=== PATIENT | female | born 1970 | race Caucasian/White ===

== ENCOUNTER 2021-02-05 07:24 | Day surgery (SDC) | payer OTHER ==
[2021-02-03 14:24] LABS: Absolute Lymphocytes (CBC) 2.1 K/uL (0.7-4.9); Basophils % 0.7 % (0-1.3); Hematocrit 37.1 % (36.0-45.0); Lymphocytes % 27.5 % (15.3-44.8); MPV 7.6 fL (7.6-11.3); RBC Red Blood Cell Count 4.77 M/uL (3.86-4.86)
--- NOTE | 2021-02-03 14:26 | RAD REPORT ---
EXAM DESCRIPTION: RAD - Chest Pa And Lat (2 Views) - 02/03/2021 2:11 pm CLINICAL HISTORY: PRE-OP, pending carpal tunnel surgery, hypertension COMPARISON: None TECHNIQUE: Frontal and lateral views of the chest were obtained. FINDINGS: The lungs are clear. Heart size is normal and central vasculature is within normal limit s. No pleural effusion or pneumothorax seen. No acute bony finding noted. No aortic abnormality. IMPRESSION: No acute cardiopulmonary process.
[2021-02-03 14:29] LABS: Protime INR 0.97
[2021-02-03 14:37] LABS: Potassium 4.1 mmol/L (3.5-5.1)
[2021-02-05 08:04] LABS: Specific Gravity 1.015 (1.005-1.030)
[2021-02-05] MEDS ORDERED: ACETAMINOPHEN 500 MG TAB ONE (08:26)
[2021-02-05] MEDS ORDERED: CELECOXIB 100 MG CAPSULE ONE (08:26)
[2021-02-05] MEDS ORDERED: Ringers Lactate 1,000 ML IV ONE (08:26)
[2021-02-05] MEDS ORDERED: CEFAZOLIN/SWI 2gm 2 GM/20 ML SYR ONE (08:26)
[2021-02-05] MEDS ORDERED: FENTANYL CITR 100 MCG/2 ML ONE (08:29)
[2021-02-05] MEDS ORDERED: propofoL 200 MG/20 ML VIAL IV ONE (08:29)
[2021-02-05] MEDS ORDERED: MIDAZOLAM HCL 2 MG/2 ML INJ ONE (08:29)
[2021-02-05] MEDS ORDERED: KETOROLAC 30 MG/ML INJ ONE (08:30)
[2021-02-05] MEDS ORDERED: ONDANSETRON 4 MG/2 ML VIAL ONE (08:30)
[2021-02-05] MEDS ORDERED: LIDOCAINE 2% MPF 5 ML VIAL ONE (08:30)
[2021-02-05] MEDS ORDERED: BUPIVACAINE 0.25% PF 10 ML VIAL ONE (09:01)
[2021-02-05] MEDS ORDERED: CODEINE 30MG/APAP 300MG TAB ONE (10:49)
[2021-02-05 11:37] VITALS: BP 129/73; TEMP 97; O2SAT 100
--- NOTE | 2021-02-07 20:55 | P.BOP ---
Preoperative diagnosis: left carpal tunnel syndrome Postoperative diagnosis: same Primary procedure: left open carpal tunnel release Delivery Assistant: NONE,NONE Estimated blood loss: 2 cc Specimen: none Findings: see dictation Anesthesia: General Complications: None Implants: none Fluids & blood products: per anesthesia record; TT: 17 mins @ 250 mmHg Transferred to: Recovery Room Condition: Good
--- NOTE | 2021-02-08 05:29 | OP ---
Date of Procedure: 02/05/2021 Surgeon: Todd Gallo MD Postoperative Diagnosis: Left carpal tunnel syndrome. Postoperative Diagnosis: Left carpal tunnel syndrome. Procedure Performed: Left open carpal tunnel release. Anesthesia: General LMA. Fluids: Per Anesthesia record. Estimated Blood Loss: 2 cc. Complications: None. Implants: None. Tourniquet Time: 70 minutes at 250 mmHg. Indication For Procedure: Catherine is a 50-year-old female who presented to my clinic with signs, sympt oms, and EMG findings consistent with left carpal tunnel syndrome. Patient failed conservative treat ment measures and had significant symptoms that interfered with activities of daily living. I discus sed with the patient at length risks and benefits associated with operative and nonoperative treatmen t. She expressed understanding and elected to proceed with operative treatment. Description Of Procedure: After informed consent was obtained, the patient was identified in the pre operative holding area. The left upper extremity was marked. The patient then brought back to the o perating room, transferred to the operative table in supine fashion and placed under general LMA anes thesia. The left upper extremity was then prepped and draped in usual sterile fashion. A time-out w as initiated. Correct patient and procedure were confirmed and identified. The patient did receive her preoperative prophylactic antibiotics. The left upper extremity was exsanguinated using Esmarch and the tourniquet was inflated to 250 mmHg. Approximately 3 cm longitudinal incision was made just ulnar to the thenar crease. Dissection was then taken down to the palmar fascia, which was split and a Friend elevator was placed just deep to the palmar fascia and transverse carpal ligament to protect the median nerve at all times. A 15-blade was then used to release the palmar fascia and transverse carpal ligament in a distal proximal fashion protecting the median nerve at all times. Any remainin g fascial bands were then released using wound blunt-tipped Metzenbaums. The wound was then irrigate d thoroughly with normal saline and skin was approximated using a 5-0 Prolene. Sterile dressings wer e applied. Tourniquet was let down. The patient was awakened and transferred to PACU in stable cond ition. Postoperative Plan: The patient will be nonweightbearing of her left upper extremity. She will foll ow up in clinic in 1 week for wound check and suture removal. She may begin working on range of alyson on exercises. CV/MODL Voice ID: [id number] Report ID: [id number]
== END 2021-02-05 11:05 | disposition home or self-care (01) ==
LOC: OR 07:24
PROVIDERS: ATTEND Orthopaedic Surgery Sports Medicine
PROC: 01N50ZZ Release Median Nerve, Open Approach (ICD-10-PCS; principal; 2021-02-05 08:45)
DX: G56.02 Carpal tunnel syndrome, left upper limb (principal); G56.01 Carpal tunnel syndrome, right upper limb; M25.542 Pain in joints of left hand; M25.541 Pain in joints of right hand; Z20.822 Contact with and (suspected) exposure to COVID-19
CPT/HCPCS: 93005; 85025; 80048; 36415; 81025; 85610; 85730; 71046; 64721; U0003; J2704; J2250; J3010; J0690; J7120; J2405